=== PATIENT | male | born 1945 | race Caucasian/White ===

== ENCOUNTER → 2021-10-12 | Outpatient (CLI) | payer MEDICARE ==
--- NOTE | 2021-10-13 05:26 | CT ---
EXAMINATION TYPE: CT abdomen pelvis w con DATE OF EXAM: 10/12/2021 COMPARISON: None available HISTORY: RLQ PAIN CT DLP: 500.8 mGycm Automated exposure control for dose reduction was used. TECHNIQUE: Helical acquisition of images was performed from the lung bases through the pelvis. CONTRAST: Performed with Oral Contrast and with IV Contrast, patient injected with 100 mL of Isovue 300. FINDINGS: LUNG BASES: Left basal linear pulmonary atelectasis with bilateral basal pulmonary emphysematous long ges. LIVER/GB: 12 mm right hepatic lobe hypodensity, not appreciated in the delayed images, possibly repre senting a hemangioma. Further ultrasound/MRI confirmation can be considered. No other definite hepati c focal lesion identified. Grossly unremarkable gallbladder. PANCREAS: No significant abnormality is seen. SPLEEN: No significant abnormality is seen. ADRENALS: No significant abnormality is seen. KIDNEYS: Unremarkable kidneys. FREE AIR: No free air is visualized. RETROPERITONEAL ADENOPATHY: None visualized REPRODUCTIVE ORGANS: Enlarged prostate. Unremarkable seminal vesicles. URINARY BLADDER: Grossly unremarkable. PELVIC ADENOPATHY: No pathologically enlarged pelvic lymph nodes. OSSEOUS STRUCTURES: No gross aggressive bone lesion. BOWEL: Unremarkable stomach and duodenum. Bilateral inguinal hernias containing fat and small bowel loops without evidence of bowel obstruction. Unremarkable remainder of the small bowel. Fecal loading of the colon with scattered uncomplicated colonic diverticulosis. No evidence of acute appendicitis. OTHER: Extensive arterial atherosclerotic calcification with abdominal aortic ectasia measuring up to 2.6 cm. No sizable ascites. Small fat-containing umbilical hernia. IMPRESSION: Bilateral inguinal hernias containing small bowel loops without evidence of bowel obstruction. Recomm end surgical consultation. No evidence of acute appendicitis or acute diverticulitis. Other findings and recommendation as descr ibed above.
== END | disposition home or self-care (01) ==
LOC: RADCTMAIN 12:49
PROVIDERS: ATTEND Family Medicine
DX: K40.20 Bilateral inguinal hernia, without obstruction or gangrene, not specified as recurrent (principal); K57.30 Diverticulosis of large intestine without perforation or abscess without bleeding
CPT/HCPCS: 82565; 84520; 74177; 36415; Q9967